=== PATIENT | female | born 1980 | race Caucasian/White ===

== ENCOUNTER 2020-02-20 09:36 | Outpatient (REF) | payer OTHER, SELFPAY ==
[2020-02-20 09:58] LABS: COVID-19 Test Negative (Negative)
== END 2020-02-20 09:37 | disposition home or self-care (01) ==
LOC: HO.LAB 09:36
PROVIDERS: Visit Provider Internal Medicine
DX: Z20.828 Contact with and (suspected) exposure to other viral communicable diseases (principal)
CPT/HCPCS: 87635

== ENCOUNTER 2020-04-24 14:37 | Outpatient (REF) | payer OTHER, SELFPAY ==
[2020-04-27 12:17] LABS: TS Negative Control Passed; TS Panel A 1; TS Panel B 0; TS Positive Control Passed; TSpotTB Negative (SeeBelow)
== END 2020-04-24 14:38 | disposition home or self-care (01) ==
LOC: HO.LAB 14:37
PROVIDERS: PCP Internal Medicine; Visit Provider Internal Medicine
DX: R05 Cough (principal)
CPT/HCPCS: 36415; 86481

== ENCOUNTER 2020-05-24 08:48 | Outpatient (REF) | payer OTHER, SELFPAY ==
[2020-05-24 09:06] LABS: COVID-19 Test Negative (Negative)
== END 2020-05-24 08:49 | disposition home or self-care (01) ==
LOC: HO.EMPCOV 08:48
PROVIDERS: Visit Provider Internal Medicine
DX: Z20.822 Contact with and (suspected) exposure to COVID-19 (principal)
CPT/HCPCS: 36415; 87635; C9803

== ENCOUNTER 2020-11-12 10:03 | Outpatient (REF) | payer OTHER, SELFPAY | END 2020-11-12 10:04 | disposition home or self-care (01) | LOC: HO.LNP 10:03 | PROVIDERS: Visit Provider Obstetrics & Gynecology | DX: Z01.419 Encounter for gynecological examination (general) (routine) without abnormal findings (principal) | CPT/HCPCS: 88142 ==

== ENCOUNTER 2021-01-25 09:47 | Outpatient (REF) | payer OTHER, SELFPAY ==
--- NOTE | ~2021-01-25 | MM_ITS ---
EXAMINATION: MM SCREENING DIGITAL BREAST TOMOSYNTHESIS, BILATERAL CLINICAL INFORMATION: Screening. Asymptomatic. Age 41. No prior breast imaging. Family history breast cancer, maternal aunt. The lifetime risk of breast cancer based on the Tyrer-Cuzick Model is 15%. COMPARISON: None (current study represents initial baseline exam). TECHNIQUE: Digital breast tomosynthesis is performed in both the craniocaudal and mediolateral oblique views along with computer-aided detection (CAD). Synthesized 2D images are generated from the tomosynthesis. FINDINGS: There are scattered areas of fibroglandular density (ACR BI-RADS breast composition Category b). Breast tissue composition borders on heterogeneously dense. There is no significant mass or architectural abnormality. Scattered benign round coarse calcifications are present. The axilla and skin contours are unremarkable. MM/MM tomosynthesis screening BI IMPRESSION: No mammographic evidence of malignancy. ASSESSMENT: BI-RADS 1: Negative RECOMMENDATION: Routine annual mammography screening. This patient's information was entered into a reminder system with a target due date for their next mammogram.
== END 2021-01-25 09:48 | disposition home or self-care (01) ==
LOC: HO.MAMMO 09:47
PROVIDERS: PCP Internal Medicine; Visit Provider Obstetrics & Gynecology
DX: Z12.31 Encounter for screening mammogram for malignant neoplasm of breast (principal)
CPT/HCPCS: 77063; 77067

== ENCOUNTER 2021-05-16 11:41 | Outpatient (REF) | payer OTHER, SELFPAY ==
[2021-05-16 12:01] LABS: MANUAL DIFF FLAG NO
[2021-05-16 12:37] LABS: Basophils Absolute Auto 0.1 X10*3/uL (0.0-0.2); Basophils Percent Auto 0.6 % (0-2); Eosinophils Absolute Auto 0.1 X10*3/uL (0.0-0.4); Eosinophils Percent Auto 1.4 % (0-4); Hematocrit 44.2 % (37.0-47.0); Hemoglobin 14.5 g/dl (12.0-16.0); Imm Gran Abs Auto 0.02 X10*3/uL (0.00-0.03); Imm Gran Pct Auto 0.3 % (0.0-0.4); Lymphocytes Absolute Auto 3.1 X10*3/uL (1.2-4.9); Lymphocytes Percent Auto 39.7 % (20-40); Mean Corpuscular HGB Conc 32.8 g/dl (31.0-35.0); Mean Corpuscular Volume 85.5 fL (80.0-98.0); Mean Platelet Volume 9.3 fL (9.4-12.3); Monocytes Absolute Auto 0.4 X10*3/uL (0.1-1.2); Monocytes Percent Auto 4.8 % (2-11); Neutrophils Absolute Auto 4.2 x10*3/uL (2.0-8.3); Neutrophils Percent Auto 53.2 % (45-73); Platelet Count 401 X10*3/uL (160-400); Red Blood Count 5.17 X10*6/uL (4.20-5.50); White Blood Count 7.9 X10*3/uL (4.8-10.8)
[2021-05-16 12:51] LABS: Estimated Average Glucose 97 mg/dL
[2021-05-16 12:56] LABS: Glucose Random 86 mg/dL (60-115)
[2021-05-16 13:22] LABS: TSH reflex Free T4 0.68 uIU/mL (0.32-4.0)
== END 2021-05-16 11:42 | disposition home or self-care (01) ==
LOC: HO.LAB 11:41
PROVIDERS: PCP Internal Medicine; Visit Provider Internal Medicine
DX: R13.10 Dysphagia, unspecified (principal); R06.83 Snoring
CPT/HCPCS: 36415; 82947; 83036; 84443; 85025

== ENCOUNTER 2021-12-17 15:22 | Outpatient (REF) | payer OTHER, SELFPAY | END 2021-12-17 15:23 | disposition home or self-care (01) | LOC: HO.LNP 15:22 | PROVIDERS: Visit Provider Obstetrics & Gynecology | DX: Z01.419 Encounter for gynecological examination (general) (routine) without abnormal findings (principal) | CPT/HCPCS: 88142 ==

== ENCOUNTER 2022-02-18 15:19 | Outpatient (REF) | payer OTHER, SELFPAY ==
--- NOTE | ~2022-02-18 | MM_ITS ---
EXAMINATION: MM SCREENING DIGITAL BREAST TOMOSYNTHESIS, BILATERAL CLINICAL INFORMATION: Screening. Asymptomatic. COMPARISON: Mammography: 01/25/2021 (baseline) TECHNIQUE: Digital breast tomosynthesis is performed in both the craniocaudal and mediolateral oblique views along with computer-aided detection (CAD). Synthesized 2D images are generated from the tomosynthesis. FINDINGS: The breasts are heterogeneously dense, which may obscure small masses (ACR BI-RADS breast composition Category c). There are no significant masses, abnormal calcifications, or other abnormalities. Breast tissue composition borders on average fibroglandular. Parenchymal pattern is similar to prior studies. The axilla and skin contours are unremarkable. No significant changes. MM/MM tomosynthesis screening BI IMPRESSION: No mammographic evidence of malignancy. ASSESSMENT: BI-RADS 1: Negative RECOMMENDATION: Routine annual mammography screening. This patient's information was entered into a reminder system with a target due date for their next mammogram.
== END 2022-02-18 15:20 | disposition home or self-care (01) ==
LOC: HO.MAMMO 15:19
PROVIDERS: PCP Internal Medicine; Visit Provider Internal Medicine
DX: Z12.31 Encounter for screening mammogram for malignant neoplasm of breast (principal)
CPT/HCPCS: 77063; 77067

== ENCOUNTER → 2022-04-27 11:23 | Outpatient (BNVA) | payer OTHER, SELFPAY | PROVIDERS: PCP Internal Medicine; Visit Provider Obstetrics & Gynecology | DX: Z13.89 Encounter for screening for other disorder (principal) ==

== ENCOUNTER 2022-05-18 14:01 | Outpatient (REF) | payer OTHER, SELFPAY ==
[2022-05-18 14:14] LABS: MANUAL DIFF FLAG NO
[2022-05-18 14:29] LABS: Basophils Absolute Auto 0.1 X10*3/uL (0.0-0.2); Basophils Percent Auto 0.8 % (0-2); Eosinophils Absolute Auto 0.1 X10*3/uL (0.0-0.4); Hematocrit 40.1 % (37.0-47.0); Hemoglobin 13.5 g/dl (12.0-16.0); Imm Gran Abs Auto 0.02 X10*3/uL (0.00-0.03); Imm Gran Pct Auto 0.2 % (0.0-0.4); Lymphocytes Percent Auto 30.4 % (20-40); Mean Corpuscular HGB Conc 33.7 g/dl (31.0-35.0); Mean Corpuscular Hemoglobin 28.2 pg (27.0-33.0); Mean Corpuscular Volume 83.9 fL (80.0-98.0); Monocytes Absolute Auto 0.4 X10*3/uL (0.1-1.2); Monocytes Percent Auto 4.4 % (2-11); Neutrophils Absolute Auto 6.2 x10*3/uL (2.0-8.3); Neutrophils Percent Auto 63.2 % (45-73); Platelet Count 365 X10*3/uL (160-400); Red Blood Count 4.78 X10*6/uL (4.20-5.50); Red Cell Distribution Width 12.4 % (11.0-16.0); White Blood Count 9.8 X10*3/uL (4.8-10.8)
[2022-05-18 14:43] LABS: Estimated Average Glucose 100 mg/dL; Hemoglobin A1c % 5.1 %
== END 2022-05-18 14:02 | disposition home or self-care (01) ==
LOC: HO.LAB 14:01
PROVIDERS: PCP Internal Medicine; Visit Provider Internal Medicine
DX: R63.5 Abnormal weight gain (principal)
CPT/HCPCS: 36415; 83036; 85025

== ENCOUNTER 2022-08-18 11:49 | Outpatient (REF) | payer OTHER, SELFPAY ==
[2022-08-18 14:17] LABS: Alanine Aminotransferase 13 U/L (0-31); Albumin Level 4.2 g/dL (3.5-5.0); Alkaline Phosphatase 55 U/L (39-117); Anion Gap 9 (12-20); Aspartate Amino Transferase 13 U/L (5-31); Bilirubin Total 0.3 mg/dL (0.0-1.0); Blood Urea Nitrogen 12 mg/dL (9-16); Calcium 9.4 mg/dL (8.4-10.2); Carbon Dioxide 29 mmol/L (22-29); Chloride 104 mmol/L (96-108); Estimated Glomerular Filt Rate > 60; Glucose Random 103 mg/dL (60-115); Potassium 4.3 mmol/L (3.3-5.1); Sodium 138 mmol/L (135-145); Total Protein 7.1 g/dL (6.5-8.0)
[2022-08-18 14:32] LABS: Vitamin D 25-OH Total 29.1 ng/mL (>30)
[2022-08-20 01:03] LABS: Follicle Stimulating Hormone 1.3 mIU/mL; Lutenizing Hormone <0.2 mIU/mL
[2022-08-20 17:15] LABS: Homocysteine 8.6 umol/L (<10.4)
[2022-08-26 19:38] LABS: Testosterone, Free 0.5 pg/mL (0.1-6.4); Testosterone, Total 6 ng/dL (2-45)
[2022-08-26 23:24] LABS: Dihydrotestosterone 6 ng/dL (< OR = 20)
[2022-08-27 21:24] LABS: Estradiol Free <0.03 pg/mL; Estradiol, Ultrasensitive <2 pg/mL
== END 2022-08-18 11:50 | disposition home or self-care (01) ==
LOC: HO.LAB 11:49
PROVIDERS: PCP Internal Medicine; Visit Provider Physician Assistant
DX: F32.81 Premenstrual dysphoric disorder (principal); E55.9 Vitamin D deficiency, unspecified; D64.9 Anemia, unspecified; R53.83 Other fatigue; N95.9 Unspecified menopausal and perimenopausal disorder; E72.01 Cystinuria
CPT/HCPCS: 36415; 80053; 82306; 82642; 82670; 82681; 83001; 83002; 83090; 84402; 84403

== ENCOUNTER 2023-02-01 08:19 | Outpatient (AMB) | payer OTHER, SELFPAY ==
[2023-02-01 08:21] VITALS: BP 118/60; BMI 27.3
--- NOTE | 2023-02-01 08:21 | MHC.OFFVIS ---
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 No complaints. Doing well with PMDD symptoms on sertraline 100 mg p.o. q.d. on Seasonique for control continuous regimen pre Last Pap was negative in 01/08, no HPV done Last Mammogram was BI-RADS 1 in 03/10 No previous screening colonoscopy PFSH Medical History (Updated 02/01/23 @ 08:27 by Bull Watt MD) PMDD (premenstrual dysphoric disorder) Family History Maternal Aunt Breast CA Female Reproductive History Menstrual Age of Menarche: 10 Duration of menses: 3-5 days control method: pills Total pregnancies: 3 Full term: 2 Number of Living Children: 2 Date of last pap smear: 12/18/21 (negative) Date of Mammogram: 02/18/22 Physical Exam Vital Signs: Last Vital Signs BP 118/60 02/01/23 08:21 BMI result Body Mass Index 27.3 Assessment & Plan Assessment & Plan (1) Well woman exam: Code(s): Z01.419 - Encounter for gynecological examination (general) (routine) without abnormal findings Plan: Cotesting not indicated this year. Mammogram ordered for 03/11. Refer to GI for screening colonoscopy Counseled the patient about the recommended dietary allowance of 1000 mg of Calcium & 600 IU of vitamin D. The patient was instructed to perform monthly self-breast exams and to schedule an annual exam in a year; All questions answered and the patient verbalized understanding. Instructed the patient to schedule annual exam in a year Orders: Orders MM screening mammo BI Today Z12.31 - Encounter for screening mammogram for malignant neoplasm of breast Referrals Gastroenterology Referral Z12.11 - Encounter for screening for malignant neoplasm of colon Coding Level of Care Code Est Pt Prev Care 40-64y(47134) Diagnoses Well woman exam Z01.419
== END 2023-02-01 08:47 | disposition home or self-care (01) ==
PROVIDERS: Visit Provider Obstetrics & Gynecology
DX: Z01.419 Encounter for gynecological examination (general) (routine) without abnormal findings (principal)
CPT/HCPCS: 99396

== ENCOUNTER → 2023-02-01 08:19 | Outpatient (BNVA) | payer OTHER, SELFPAY | PROVIDERS: Visit Provider Obstetrics & Gynecology ==

== ENCOUNTER 2024-11-27 08:03 | Outpatient (REF) | payer OTHER, SELFPAY ==
--- OUTSIDE RECORDS SUMMARY | 2024-11-27 08:11 | XMS_ITS | Clinical Summary ---
Author Organization [facility] Address [address] [place] [address] Phone Care Team Providers Care Cash Grain Farmer Name Role Phone Joel De La Torre MD Primary Care Provider [phone] Allergies No known active allergies Medications sertraline (ZOLOFT) 100 MG tablet Take 100 mg by mouth daily. 10/13/2024 Active methylphenidate HCl (RITALIN) 10 MG tablet Take 10 mg by mouth 2 (two) times a day. 10/25/2024 Active methylphenidate HCl 54 MG ER tablet Take 54 mg by mouth every morning. 10/25/2024 Active Active Problems Problem Noted Date Diagnosed Date Attention deficit hyperactivity disorder (ADHD) 11/17/2024 PMDD (premenstrual dysphoric disorder) Encounters Date Type Department Care Team Description 11/17/2024 8:00 AM EDT Office Visit [address] [address] Joel De La Torre MD Attention deficit hyperactivity disorder (ADHD), unspecified ADHD type (Primary Dx); Encounter for screening mammogram for malignant neoplasm of breast; Screening for condition; PMDD (premenstrual dysphoric disorder) from Last 3 Months Family History Medical History Relation Comments No Known Problems Brother Breast cancer Maternal Aunt 1 Dementia Maternal Aunt 2 Dementia Maternal Grandfather Dementia Maternal Grandmother Diabetes type II Maternal Grandmother Lung cancer Maternal Uncle Smoker Atrial fibrillation Mother Hypertension Mother Hypothyroidism Mother Pacemaker Mother Relation Status Comments Brother Maternal Aunt 1 Maternal Aunt 2 Alive Maternal Grandfather Maternal Grandmother Maternal Uncle Mother Alive Paternal Grandfather Paternal Grandmother Social History Tobacco Use Types Packs/Day Years Used Date Smoking Tobacco: Former Cigarettes Smokeless Tobacco: Never Tobacco Cessation:Counseling Given: Not Answered Alcohol Use Standard Drinks/Week Comments Yes 0 (1 standard drink = 0.6 oz pur e alcohol) Child or Family Care Answer Date Record ed Do you have problems with on e of the following making it difficult for you to work, study, or receive health care? No 11/10/2024 Education Answer Date Recorded Are you interested in help w ith more adult education (for example, completing high school, GED, job training, learning the [place] language, technical skills, or developing parenting skills)? No 11/10/2024 Are you concerned about learning? Not on file 11/10/2024 No 11/10/2024 Yes 11/10/2024 Food Answer Date Recorded Within the past 6 months we worried whether our food would run out before we got money to buy more. Never True 11/10/2024 Within the past 6 months the food we bought just didn't last and we didn't have enough money to get more. Never True Residential Stability Answer Date Recor ded What is your housing situation today? I have kika sing 11/10/2024 How many times have you move d in the past 12 months? Zero (I did not move) 11/10/2024 Paying for Meds Answer Date Recorded Do you have trouble paying for medicines? No 11/10/2024 Paying Utility Bills Answer Date Record ed Do you have trouble paying your heating or elect ricity bill? No 11/10/2024 Transportation Answer Date Recorded Has the lack of transportati on kept you from medical appointments or from getting medications? No 11/10/2024 Digital Access Answer Date Recorded No 11/10/2024 Yes 11/10/2024 Do you have reliable internet access at home? Ye s 11/10/2024 Do you have a device (e.g., phone, tablet, computer) with a working camera? Yes 11/10/2024 Intimate Partner Violence Answer Date R ecorded Denied Basic Needs Not on file 11/10/2024 In the past 12 months have y ou been in a relationship with a person who hurts, threatens, or tries to control you? No 11/10/2024 Worried food would run out Not on file 11/10 In the past 12 months have y ou been in a relationship with a person who hurts, threatens, or tries to control you? No 11/10/2024 Comments Unknown Sex and Gender Information Value Date Recorded Sex Assigned at Not on file Legal Sex Female 2:53 PM EDT Gender Identity Not on file Sexual Orientation Not on file Last Filed Vital Signs Vital Sign Reading Time Taken Comments Blood Pressure 100/60 11/17/2024 7:58 AM EDT Pulse 88 11/17/2024 7:58 AM EDT Temperature 36.6 C (97.8 F) 11/17/2024 7:58 AM EDT Respiratory Rate - - Oxygen Saturation 98% 11/17/2024 7:58 AM EDT Inhaled Oxygen Concentration - - Weight 70.8 kg (156 lb) 11/17/2024 7:58 AM EDT Height 165.1 cm (5' 5 ) 11/17/2024 7:58 AM EDT Body Mass Index 25.96 11/17/2024 7:58 AM EDT Plan of Treatment Upcoming Encounters Date Type Department Care Team (Late st Contact Info) Description 01/03/2025 8:00 AM EDT Office Visit [facility] [address] [place] [address] [place] [address] Lane Joiner MD [address] [facility], [address] [place] [address] Health Maintenance Due Date Last Done Comments Adult Td,Tdap Booster 1978 LIPID PANEL 1978 SMOKING Hx and SMOKELESS TOBACCO SCREENING 1991 HEPATITIS C SCREENING 01/16/1996 HIV ONE-TIME SCREENING (18-6 5 YEARS) 01/16/1996 PAP SMEAR 1999 SCREENING FOR DIABETES 2013 MAMMOGRAM 2018 COLOGUARD 2023 COLONOSCOPY 2023 COLORECTAL CANCER SCREENING 2023 FIT TEST 2023 FOBT 2023 SIGMOIDOSCOPY 2023 VIRTUAL COLONOSCOPY 2023 COVID-19 VACCINE (3 2023-2 5 season) 2023 04/26/2020, 04/05/2020 DEPRESSION SCREENING 11/10/2025 11/10/2024 HEPATITIS A VACCINES Aged Out No long er eligible based on patient's age to complete this topic HIB VACCINES Aged Out No longer eligi ble based on patient's age to complete this topic MENINGOCOCCAL VACCINES (ACWY) Aged Out No longer eligible based on patient's age to complete this topic MENINGOCOCCAL VACCINES (B) Aged Out N o longer eligible based on patient's age to complete this topic PNEUMOCOCCAL VACCINES (0-49 years) Aged Out No longer eligible b ased on patient's age to complete this topic Medical Devices Not on file Insurance [employer] Member Subscriber Plan / Payer (Ef fective 2022-Present) Name:Chel Flores Relation to Subscriber:Self Name:Chel Flores Payer ID:[id number] (NAIC) Type:PPO Address: [address] [employer] Member Subscriber Plan / Payer (Ef fective 2022-Present) Name:Chel Flores Relation to Subscriber:Self Name:Chel Flores Payer ID:[id number] (NAIC) Type:PPO Address: [place] [id number] [employer] [place] [address] Care Teams Cash Grain Farmer Relationship Specialty Start Date End Date Joel De La Torre MD [address] [place] [address], [address] [place] [address] [email or web address] PCP - General Family Medicine 11/17/24 Additional Source Comments The information contained in this document represents components of the legal health record. It is not the complete legal health record.[facility]
[2024-11-27 08:14] LABS: MANUAL DIFF FLAG NO
[2024-11-27 08:40] LABS: Hematocrit 40.2 % (37.0-47.0); Hemoglobin 13.3 g/dl (12.0-16.0); Imm Gran Abs Auto 0.01 X10*3/uL (0.00-0.03); Imm Gran Pct Auto 0.1 % (0.0-0.4); Lymphocytes Absolute Auto 3.1 X10*3/uL (1.2-4.9); Mean Corpuscular HGB Conc 33.1 g/dl (31.0-35.0); Mean Corpuscular Hemoglobin 28.1 pg (27.0-33.0); Mean Corpuscular Volume 85.0 fL (80.0-98.0); NRBC Abs Auto 0.000 X10*3/uL (0.0-0.012); NRBC Pct Auto 0.0 /100WBC (0.0-0.2); Platelet Count 330 X10*3/uL (160-400); Red Blood Count 4.73 X10*6/uL (4.20-5.50); White Blood Count 6.9 X10*3/uL (4.8-10.8)
[2024-11-27 09:12] LABS: Alanine Aminotransferase 11 U/L (0-31); Albumin Level 4.2 g/dL (3.5-5.0); Alkaline Phosphatase 54 U/L (39-117); Anion Gap 9 (12-20); Aspartate Amino Transferase 19 U/L (5-31); Blood Urea Nitrogen 16 mg/dL (9-16); Calcium 8.8 mg/dL (8.4-10.2); Carbon Dioxide 28 mmol/L (22-29); Chloride 107 mmol/L (96-108); Cholesterol 180 mg/dL (<200); Estimated Glomerular Filt Rate > 60; HDL Cholesterol 53 mg/dL (>40); Potassium 4.2 mmol/L (3.3-5.1); Sodium 140 mmol/L (135-145); Total Protein 6.9 g/dL (6.5-8.0); Triglycerides 79 mg/dL (<150)
== END 2024-11-27 08:04 | disposition home or self-care (01) ==
LOC: HO.LAB 08:03
PROVIDERS: PCP Family Medicine; Visit Provider Family Medicine
DX: Z13.89 Encounter for screening for other disorder (principal); Z13.6 Encounter for screening for cardiovascular disorders
CPT/HCPCS: 36415; 80053; 80061; 85025

== ENCOUNTER 2025-03-08 11:32 | Outpatient (REF) | payer OTHER, SELFPAY ==
--- NOTE | ~2025-03-08 | MM_ITS ---
EXAMINATION: MM SCREENING DIGITAL BREAST TOMOSYNTHESIS, BILATERAL CLINICAL INFORMATION: Screening. Asymptomatic. COMPARISON: February 18, 2022 and January 25, 2021 TECHNIQUE: Digital breast tomosynthesis is performed in mediolateral oblique and craniocaudal views along with computer-aided detection (CAD). Synthesized 2D images are generated from the tomosynthesis. FINDINGS: BREAST COMPOSITION: The breasts are heterogeneously dense, which may obscure small masses. BILATERAL BREASTS: No significant masses, suspicious calcifications or other abnormalities are seen in either breast. MM/MM tomosynthesis screening BI IMPRESSION: BILATERAL BREASTS: Negative, no mammographic evidence of malignancy. Normal interval follow-up is recommended in 12 months. ASSESSMENT: BI-RADS: Category 1: Negative RECOMMENDATION: Routine annual mammography screening. FOLLOW-UP: 1 year F/U This examination should not preclude the clinical evaluation of a suspicious palpable abnormality. This patient's information was entered into a reminder system with a target due date for their next mammogram. Electronically signed by: Lyle Ta MD 03/11/2025 07:04 PM KJ
--- OUTSIDE RECORDS SUMMARY | 2025-03-08 17:51 | XMS_ITS | Clinical Summary ---
Author Organization [facility] Address [address] [address] Phone Care Team Providers Care Impregnator And Drier Name Role Phone Joel De La Torre MD Primary Care Provider [phone] Allergies No known active allergies Medications sertraline [...] Encounters Date Type Department Care Team Description 01/03/2025 8:00 AM EDT Office Visit [facility] [address] [place] [address] Lane Joiner MD Encounter for gynecological examination without abnormal finding (Primary Dx); Colon cancer screening from Last 3 Months Family History Medical History Relation Comments No Known Problems Brother Breast cancer Maternal Aunt 1 after 50 Dementia Maternal Aunt 2 Dementia Maternal Grandfather [...] high school, GED, job training, learning the [place]vorian language, technical skills, or developing parenting skills)? [...] tries to control you? No 11/10/2024 Comments No Sex and Gender Information Value Date Recorded Sex Assigned at Not on file Legal Sex Female 2:53 PM EDT Gender Identity Not on file Sexual Orientation Not on file Last Filed Vital Signs Vital Sign Reading Time Taken Comments Blood Pressure 104/74 01/03/2025 8:08 AM EDT Pulse 88 11/17/2024 7:58 AM EDT Temperature 36.6 C (97.8 F) 11/17/2024 7:58 AM EDT Respiratory Rate - - Oxygen Saturation 98% 11/17/2024 7:58 AM EDT Inhaled Oxygen Concentration - - Weight 70.3 kg (155 lb) 01/03/2025 8:08 AM EDT Height 165.1 cm (5' 5 ) 01/03/2025 8:08 AM EDT Body Mass Index 25.79 01/03/2025 8:08 AM EDT Plan of Treatment Health Maintenance Due Date Last Done Comments Adult Td,Tdap Booster 1978 LIPID PANEL 1978 SMOKING Hx and SMOKELESS TOBACCO SCREENING 1991 HEPATITIS C SCREENING 01/16/1996 HIV ONE-TIME SCREENING (18-65 YEARS) 01/16/1996 PAP SMEAR 1999 SCREENING FOR DIABETES 2013 COLONOSCOPY 2023 FIT TEST 2023 FOBT 2023 SIGMOIDOSCOPY 2023 VIRTUAL COLONOSCOPY 2023 INFLUENZA VACCINE (#1) 2024 , 02/17/2022, 03/01/2021, Additional history exists COVID-19 VACCINE ( season) 2024 04/26/2020, 04/05/2020 DEPRESSION SCREENING 11/10/2025 11/10/2024 MAMMOGRAM 01/03/2027 01/03/2025 COLOGUARD 01/21/2028 01/20/2025 COLORECTAL CANCER SCREENING 01/21/2028 HEPATITIS A VACCINES Aged Out No long er eligible based on patient's age to complete this topic HIB VACCINES Aged Out No longer eligi ble based on patient's age to complete this topic IPV VACCINES Aged Out No longer eligi ble based on patient's age to complete this topic MENINGOCOCCAL VACCINES (ACWY) Aged Out No longer eligible based on patient's age to complete this topic MENINGOCOCCAL VACCINES (B) Aged Out N o longer eligible based on patient's age to complete this topic PNEUMOCOCCAL VACCINES (0-49 years) Aged Out No longer eligible based on patient's age to complete this topic Medical Devices Not on file Procedures Procedure Name Priority Date/Time Associated Diagnosis Comments COLOGUARD ([employer]) (NON-MGB) Routine 01/20/2025 10:00 AM EDT Colon cancer screening BI MAMMOGRAM SCREENING (BILATERAL) Routine 01/03/2025 8:16 AM EDT Encounter for gynecological examination without abnormal finding from Last 3 Months Results * COLOGUARD ([employer]) (01/20/2025 10:00 AM EDT) Cologuard Results Negative Negative 025 1:01 PM EDT [employer] (CLIA #:[id number]) Comment: The Cologuard (TM) test was performed on this specimen. NEGATIVE TEST RESULT. A negative Cologuard result indicates a low likelihood that a colorectal cancer (CRC) or advanced adenoma (adenomatous polyps with more advanced pre-malignant features) is present. The chance that a person with a negative Cologuard test has a colorectal cancer is less than 1 in 1500 (negative predictive value >99.9%) or has an advanced adenoma is less than 5.3% (negative predictive value 94.7%). These data are based on a prospective cross-sectional study of 10,000 individuals at average risk for colorectal cancer who were screened with both Cologuard and colonoscopy. (Haider Fletcher al, N Engl J Med 2014;370(14):1286- 1297) The normal value (reference range) for this assay is negative. COLOGUARD RE-SCREENING RECOMMENDATION: Periodic colorectal cancer screening is an important part of preventive healthcare for asymptomatic individuals at average risk for colorectal cancer. Following a negative Cologuard result, the [place] Cancer Society and U.S. Multi-Society Task Force screening guidelines recommend a Cologuard re-screening interval of 3 years. References: [place] [employer] Society Guideline for Colorectal Cancer Screening: https://www.cancer.org/cancer/dsryl-zjzemw-hvlsdu/aeszjgjhd-cixuaeont-kwcjfvr/ac s-rec ommendations.html.; Nathaniel HUTCHINS, Gilberto DOLL, Fareed ROBLES, Colorectal Cancer Screening: Recommendations for Physicians and Patients from the U.S. Multi-Society Task Force on Colorectal Cancer Screening , Am J Gastroenterology 2017; 112:4590-8502. TEST DESCRIPTION: Composite algorithmic analysis of stool DNA-biomarkers with hemoglobin immunoassay. Quantitative values of individual biomarkers are not reportable and are not associated with individual biomarker result reference ranges. Cologuard is intended for colorectal cancer screening of adults of either sex, 45 years or older, who are at average-risk for colorectal cancer (CRC). Cologuard has been approved for use by the U.S. FDA. The performance of Cologuard was established in a cross sectional study of average-risk adults aged 50-84. Cologuard performance in patients ages 45 to 49 years was estimated by sub-group analysis of near-age groups. Colonoscopies performed for a positive result may find as the most clinically significant lesion: colorectal cancer [4.0%], advanced adenoma (including sessile serrated polyps greater than or equal to 1cm diameter) [20%] or non- advanced adenoma [31%]; or no colorectal neoplasia [45%]. These estimates are derived from a prospective cross-sectional screening study of 10,000 individuals at average risk for colorectal cancer who were screened with both Cologuard and colonoscopy. (Haider Lomax. et al, N Engl J Med 2014;370(14):3221-8396.) Cologuard may produce a false negative or false positive result (no colorectal cancer or precancerous polyp present at colonoscopy follow up). A negative Cologuard test result does not guarantee the absence of CRC or advanced adenoma (pre-cancer). The current Cologuard screening interval is every 3 years. ([place] Cancer Society and U.S. Multi-Society Task Force). Cologuard performance data in a 10,000 patient pivotal study using colonoscopy as the reference method can be accessed at the following location: www.sourceasy.[employer] Kar[employer]/results. Additional description of the Cologuard test process, warnings and precautions can be found at www.cologuard.com. Stool (Per Rectum) 01/20/2025 10:00 AM EDT 01/22/2025 2:[address] Joiner MD BODY FLUIDS AND STOOLS O RDERABLES Final Result [employer] (CLIA #:[id number]) [place] [address], [facility] [phone] from Last 3 Months Insurance [employer] B[employer] Care Teams Impregnator And Drier Relationship Specialty Start Date End Date Joel De La Torre MD [address] [place] [address] [address] [place] [address] [email or web address] PCP - General Family Medicine 11/17/24 Additional Source Comments The information contained in this document represents components of the legal health record. It is not the complete legal health record.[facility]
== END 2025-03-08 11:33 | disposition home or self-care (01) ==
LOC: HO.MAMMO 11:32
PROVIDERS: Visit Provider Family Medicine
DX: Z12.31 Encounter for screening mammogram for malignant neoplasm of breast (principal)
CPT/HCPCS: 77063; 77067

== ENCOUNTER → 2025-03-08 11:45 | Outpatient (BNV) | payer OTHER, SELFPAY | PROVIDERS: Visit Provider Radiology Body Imaging | DX: Z12.31 Encounter for screening mammogram for malignant neoplasm of breast (principal) | CPT/HCPCS: 77063; 77067 ==